=== PATIENT | male | born 1985 | race Caucasian/White ===

== ENCOUNTER 2018-11-26 04:18 | Emergency (ER) | payer OTHER ==
[~2018-11-26] VITALS: Ht 162.6 cm; Wt 104.3 kg
--- NOTE | 2018-11-26 04:20 | NUR ---
Patient to ER bed 6 to gown for evaluation. Side rails up.
--- NOTE | 2018-11-26 04:20 | NUR ---
Pt came to the ED for RLQ ABD pain which started 2 weeks ago. Pain is intermitent. Reports that pt has been taking milk of magnesia to help with constipation. Reports that the milk of magnesia has been helping however, stool is loose. Reports pain is 4/10. Denies chest pain/sob. No other complaints/injuries noted. Will cont. to monitor.
--- NOTE | 2018-11-26 04:22 | NUR ---
ER at bedside examining patient.
[2018-11-26 04:27] VITALS: BP_SYST 166
[2018-11-26] MEDS ORDERED: NACL 0.9% 1,000 ML IV ONE (04:27)
[2018-11-26] MEDS ORDERED: MORPHINE 2 MG/ML INJ. SYRINGE IM ONE (04:30)
[2018-11-26] MEDS ORDERED: ONDANSETRON HCL 4 MG/2 ML VIAL IVP ONE (04:30)
--- NOTE | 2018-11-26 04:45 | NUR ---
PT went to CT scan via Thubrikar Aortic Valve. tolerated well. Will cont. to monitor.
[2018-11-26 05:14] LABS: BASOPHILS # (AUTO) 0.1 K/uL (0.0-0.2); BASOPHILS % (AUTO) 0.7 % (0.0-2.0); EOSINOPHILS # (AUTO) 0.3 K/uL (0.0-0.4); EOSINOPHILS % (AUTO) 3.2 % (0.0-4.0); HEMATOCRIT 40.2 % (36-54); HEMOGLOBIN 13.8 g/dL (14.0-18.0); LYMPHOCYTES # (AUTO) 1.3 K/uL (1.0-5.5); LYMPHOCYTES % (AUTO) 15.9 % (20.5-51.5); MEAN CORPUSCULAR HEMOGLOBIN 32 pg (27-31); MEAN CORPUSCULAR HGB CONC 34 % (32-36); MEAN CORPUSCULAR VOLUME 94 fL (79.0-98.0); MONOCYTES # (AUTO) 0.4 K/uL (0.0-1.0); MONOCYTES % (AUTO) 4.8 % (1.7-9.3); NEUTROPHILS # (AUTO) 6.4 K/uL (1.8-7.7); NEUTROPHILS % (AUTO) 75.4 % (40.0-70.0); PLATELET COUNT (AUTO) 198 K/uL (130-430); RED BLOOD CELL COUNT(AUTO) 4.29 MIL/uL (4.2-6.2); RED CELL DISTRIBUTION WIDTH 12.5 % (9.0-15.0); WHITE BLOOD COUNT (AUTO) 8.4 K/uL (4.8-10.8)
[2018-11-26 05:30] LABS: CALCIUM 8.6 mg/dL (8.4-11.0); CREATININE 1.07 mg/dL (0.55-1.30); POTASSIUM 3.5 mmol/L (3.5-5.1)
[2018-11-26 05:32] LABS: PROTHROMBIN TIME 10.1 SECS (9.5-12.5)
[2018-11-26 05:36] LABS: ALBUMIN 3.9 g/dL (3.4-4.8); TOTAL BILIRUBIN 0.7 mg/dL (0.0-1.0)
[2018-11-26] MEDS ORDERED: IOHEXOL 100 ML IV ONE (05:45)
--- NOTE | 2018-11-26 07:10 | NUR ---
Report received from CARRIE Smith for continuation of care.
[2018-11-26 07:18] LABS: BILIRUBIN,URINE NEGATIVE (NEGATIVE); BLOOD, URINE NEGATIVE (NEGATIVE); CLARITY/URINE CLEAR (CLEAR); COLOR,URINE YELLOW (YELLOW); GLUCOSE,URINE NEGATIVE (NEGATIVE); KETONES,URINE NEGATIVE (NEGATIVE); LEUKOCYTE ESTERASE ,URINE NEGATIVE (NEGATIVE); NITRITE, URINE NEGATIVE (NEGATIVE); PROTEIN URINE NEGATIVE (NEGATIVE); UROBILINOGEN,URINE 0.2 (0.2-1.0)
--- NOTE | 2018-11-26 08:05 | NUR ---
Patient transported to radiology via wheelchair, accompanied by respiratory technician.
[2018-11-26] MEDS ORDERED: LORazepam 2 MG/ML VIAL IVP ONE (08:15)
[2018-11-26] MEDS ORDERED: NS 500 ML IV ONE (08:15)
--- NOTE | 2018-11-26 09:50 | NUR ---
Patient given written and verbal discharge instructions and verbalizes understanding. ER MD discussed with patient the results and treatment provided. Patient in stable condition. ID arm band removed. IV catheter removed intact and dressing applied, no active bleeding. Rx of tramadol, zofran, motrin given. Patient educated on pain management and to follow up with PMD. Pain Scale 0/10. Opportunity for questions provided and answered. Medication side effect fact sheet provided.
[2018-11-26 09:51] VITALS: BP_SYST 134
== END 2018-11-26 09:51 | disposition home or self-care (01) ==
LOC: SED 04:18
DX: K80.20 Calculus of gallbladder without cholecystitis without obstruction (principal); R03.0 Elevated blood-pressure reading, without diagnosis of hypertension
CPT/HCPCS: 36415; 76700; 74177; 80053; 81003; 83690; 85025; 85610; 85730; 96361; 96374; 96375; 99284; J2060; J2270; J2405; J7030; J7040; Q9967

== ENCOUNTER 2019-03-01 04:19 | Emergency (ER) | payer BC, OTHER ==
[~2019-03-01] VITALS: Ht 182.9 cm; Wt 104.3 kg
[2019-03-01 04:25] VITALS: BP_SYST 123
--- NOTE | 2019-03-01 04:25 | NUR ---
Pt placed to ER bed 07, to gown. Pt c/o RUQ abdominal pain since 0200 this AM. Pt states that he took Motrin 800 mg at 0300 with no relief. Denies N/V/D. Pt has hx of IBS.
[2019-03-01] MEDS ORDERED: NACL 0.9% 1,000 ML IV ONE (05:05)
--- NOTE | 2019-03-01 05:05 | NUR ---
Dr. Whalen at bedside.
[2019-03-01] MEDS ORDERED: DIPHENHYDRAMINE INJ 50 MG/ML VIAL IVP ONE (05:15)
[2019-03-01] MEDS ORDERED: ONDANSETRON HCL 4 MG/2 ML VIAL IVP ONE (05:15)
[2019-03-01] MEDS ORDERED: MORPHINE 4 MG/ML INJ. SYRINGE IVP ONE (05:15)
--- NOTE | 2019-03-01 05:30 | NUR ---
# 20 gauge angiocath placed to LAC. Use of asceptic technique. Opsite placed over site. Blood return noted. Blood for lab drawn from site. Flushed with 10 cc of normal saline. No evidence of infiltration noted. Patient tolerated well.
[2019-03-01 06:02] LABS: BASOPHILS % (AUTO) 0.4 % (0.0-2.0); EOSINOPHILS # (AUTO) 0.1 K/uL (0.0-0.4); HEMATOCRIT 39.6 % (36-54); HEMOGLOBIN 13.6 g/dL (14.0-18.0); LYMPHOCYTES # (AUTO) 0.5 K/uL (1.0-5.5); LYMPHOCYTES % (AUTO) 7.5 % (20.5-51.5); MEAN CORPUSCULAR HEMOGLOBIN 32 pg (27-31); MEAN CORPUSCULAR HGB CONC 34 % (32-36); MEAN CORPUSCULAR VOLUME 94 fL (79.0-98.0); MONOCYTES # (AUTO) 0.7 K/uL (0.0-1.0); MONOCYTES % (AUTO) 11.3 % (1.7-9.3); NEUTROPHILS # (AUTO) 4.8 K/uL (1.8-7.7); NEUTROPHILS % (AUTO) 79.8 % (40.0-70.0); PLATELET COUNT (AUTO) 145 K/uL (130-430); RED BLOOD CELL COUNT(AUTO) 4.23 MIL/uL (4.2-6.2)
[2019-03-01 06:14] LABS: CALCIUM 8.1 mg/dL (8.4-11.0); CREATININE 0.84 mg/dL (0.55-1.30); POTASSIUM 3.8 mmol/L (3.5-5.1)
[2019-03-01 06:19] LABS: ALBUMIN 3.7 g/dL (3.4-4.8); TOTAL BILIRUBIN 0.8 mg/dL (0.0-1.0)
--- NOTE | 2019-03-01 06:30 | NUR ---
Pt resting quietly, even and non-labored respirations, NAD. VSS.
[2019-03-01] MEDS ORDERED: OSELTAMIVIR PHOSPHATE 75 MG CAPSULE PO ONE (07:00)
[2019-03-01 07:02] VITALS: BP_SYST 133
--- NOTE | 2019-03-01 07:02 | NUR ---
Patient given written and verbal discharge instructions and verbalizes understanding. ER MD discussed with patient the results and treatment provided. Patient in stable condition. ID arm band removed. IV catheter removed intact and dressing applied, no active bleeding. Rx of Tamiflu and [place] given. Patient educated on pain management and to follow up with PMD. Pain Scale 0/10. Opportunity for questions provided and answered. Medication side effect fact sheet provided.
== END 2019-03-01 07:02 | disposition home or self-care (01) ==
LOC: SED 04:19
DX: K80.20 Calculus of gallbladder without cholecystitis without obstruction (principal); J09.X2 Influenza due to identified novel influenza A virus with other respiratory manifestations
CPT/HCPCS: 36415; 80053; 83605; 83690; 85025; 86710; 87040; 96374; 96375; 99283; G9035; J1200; J2270; J2405; J7030

== ENCOUNTER 2019-04-19 02:59 | Emergency (ER) | payer BC, OTHER ==
[~2019-04-19] VITALS: Ht 182.9 cm; Wt 90.7 kg
[2019-04-19 03:25] VITALS: BP_SYST 128
--- NOTE | 2019-04-19 03:42 | NUR ---
Patient to ER bed 8 to gown for evaluation. Side rails up.
--- NOTE | 2019-04-19 03:44 | NUR ---
Patient complains of right abdominal pain stating "my gallbladder is acting up." Pt states pain suddenly came around 1045. Pt had taken Ibuprofen and Tums with no relief. Pt denies fever. Patient denies N/V. Patient denies dysuria. Per patient, pain is a dull constant feeling to right abdomen but radiates to all around to back. No other injuries/complaints per patient or noted.
--- NOTE | 2019-04-19 03:48 | NUR ---
ER Dr. Whalen at bedside examining patient.
[2019-04-19] MEDS ORDERED: NACL 0.9% 1,000 ML IV ONE (03:53)
[2019-04-19] MEDS ORDERED: DIPHENHYDRAMINE INJ 50 MG/ML VIAL IVP ONE (04:00)
[2019-04-19] MEDS ORDERED: MORPHINE 4 MG/ML INJ. SYRINGE IVP ONE (04:00)
[2019-04-19 04:14] LABS: BASOPHILS % (AUTO) 0.6 % (0.0-2.0); EOSINOPHILS # (AUTO) 0.4 K/uL (0.0-0.4); EOSINOPHILS % (AUTO) 6.6 % (0.0-4.0); HEMATOCRIT 41.5 % (36-54); HEMOGLOBIN 13.7 g/dL (14.0-18.0); LYMPHOCYTES # (AUTO) 1.9 K/uL (1.0-5.5); LYMPHOCYTES % (AUTO) 29.8 % (20.5-51.5); MEAN CORPUSCULAR HEMOGLOBIN 31 pg (27-31); MEAN CORPUSCULAR HGB CONC 33 % (32-36); MEAN CORPUSCULAR VOLUME 95 fL (79.0-98.0); MONOCYTES # (AUTO) 0.4 K/uL (0.0-1.0); NEUTROPHILS # (AUTO) 3.7 K/uL (1.8-7.7); PLATELET COUNT (AUTO) 224 K/uL (130-430); RED BLOOD CELL COUNT(AUTO) 4.37 MIL/uL (4.2-6.2); RED CELL DISTRIBUTION WIDTH 13.3 % (9.0-15.0); WHITE BLOOD COUNT (AUTO) 6.4 K/uL (4.8-10.8)
[2019-04-19 04:24] LABS: CALCIUM 8.7 mg/dL (8.4-11.0); CREATININE 0.86 mg/dL (0.55-1.30); POTASSIUM 3.7 mmol/L (3.5-5.1)
[2019-04-19 04:30] LABS: ALBUMIN 3.9 g/dL (3.4-4.8); TOTAL BILIRUBIN 0.8 mg/dL (0.0-1.0)
[2019-04-19 06:08] VITALS: BP_SYST 122
--- NOTE | 2019-04-19 06:08 | NUR ---
Patient given written and verbal discharge instructions and verbalizes understanding. ER MD discussed with patient the results and treatment provided. Patient in stable condition. ID arm band removed. IV catheter removed intact and dressing applied, no active bleeding. No Rx given. Patient educated on pain management and to follow up with PMD. Pain Scale 0. Opportunity for questions provided and answered. Medication side effect fact sheet provided.
== END 2019-04-19 06:08 | disposition home or self-care (01) ==
LOC: SED 02:59
DX: K80.50 Calculus of bile duct without cholangitis or cholecystitis without obstruction (principal); K80.20 Calculus of gallbladder without cholecystitis without obstruction; R10.11 Right upper quadrant pain; K58.9 Irritable bowel syndrome, unspecified; Z90.49 Acquired absence of other specified parts of digestive tract
CPT/HCPCS: 36415; 80053; 83690; 85025; 96374; 96375; 99283; J1200; J2270; J7030